=== PATIENT | female | born 2000 | race Caucasian/White ===

== ENCOUNTER 2021-02-21 22:24 | Emergency (ER) | payer OTHER ==
[~2021-02-21] VITALS: Ht 154.9 cm; Wt 67.6 kg
[2021-02-21 22:48] VITALS: BP_SYST 132
--- NOTE | 2021-02-22 01:12 | NUR ---
Patient ambulatory to bed 7 for evaluation
--- NOTE | 2021-02-22 01:32 | NUR ---
Patient brought in complaining of rash to vaginal area starting today and worsening. Denies any pain or itchiness. Denies any vaginal discharge. No other complaints/injuries per patient or as noted.
--- NOTE | 2021-02-22 01:42 | NUR ---
ER Dr. Mark at bedside examining patient.
--- NOTE | 2021-02-22 02:04 | NUR ---
Pelvic exam performed by Dr. Mark with this RN at bedside for entire examination. Patient tolerated procedure well. Patient assisted to position of comfort after examination.
[2021-02-22] MEDS ORDERED: CLIN300C12 PO (02:09)
[2021-02-22] MEDS ORDERED: CLINDAMYCIN HCL 150 MG CAPSULE PO ONE (02:15)
[2021-02-22 02:21] VITALS: BP_SYST 126
--- NOTE | 2021-02-22 02:21 | NUR ---
Patient given written and verbal discharge instructions and verbalizes understanding. ER MD discussed with patient the results and treatment provided. Patient in stable condition. ID arm band removed. Rx of clindamycin given. Patient educated on pain management and to follow up with PMD. Pain Scale 0/10 Opportunity for questions provided and answered. Medication side effect fact sheet provided.
== END 2021-02-22 02:21 | disposition home or self-care (01) ==
LOC: SED 22:24
DX: R21 Rash and other nonspecific skin eruption (principal); N89.8 Other specified noninflammatory disorders of vagina
CPT/HCPCS: 81025; 99283

== ENCOUNTER 2023-01-24 06:43 | Emergency (ER) | payer OTHER ==
[~2023-01-24] VITALS: Ht 154.9 cm; Wt 56.7 kg
[~2023-01-24 06:43] MED LIST: CLIN-142 PO
[2023-01-24 06:49] VITALS: BP_SYST 116; PULSE 82; RESP 16; TEMP 97.9; O2SAT 100
[2023-01-24] MEDS ORDERED: ACETAMINOPHEN 325 MG TABLET PO ONE (07:15)
[2023-01-24 09:48] VITALS: BP_SYST 96; PULSE 77; RESP 18; TEMP 98.7; O2SAT 99
== END 2023-01-24 11:39 | disposition home or self-care (01) ==
LOC: SED 06:43
DX: S13.4XXA Sprain of ligaments of cervical spine, initial encounter (principal); R51.9 Headache, unspecified; R11.0 Nausea; G47.00 Insomnia, unspecified; Z88.2 Allergy status to sulfonamides; Z79.899 Other long term (current) drug therapy; V49.40XA Driver injured in collision with unspecified motor vehicles in traffic accident, initial encounter; Y93.89 Activity, other specified; Y92.89 Other specified places as the place of occurrence of the external cause; Y99.8 Other external cause status
CPT/HCPCS: 70450-TC; 72125-TC; 76376; 81025; 99284

== ENCOUNTER 2023-09-04 19:13 | Emergency (ER) | payer BC, OTHER ==
[~2023-09-04] VITALS: Ht 154.9 cm; Wt 61.2 kg
[2023-09-04 19:39] VITALS: BP_SYST 115; PULSE 85; RESP 16; TEMP 99.2; O2SAT 99
[2023-09-04] MEDS ORDERED: ACET-2634 PO (21:50)
[2023-09-04 22:05] VITALS: BP_SYST 115; PULSE 85; RESP 16; TEMP 99.2; O2SAT 99
== END 2023-09-04 22:05 | disposition home or self-care (01) ==
LOC: SED 19:13
DX: M54.2 Cervicalgia (principal); M54.50 Low back pain, unspecified; R51.9 Headache, unspecified; Z88.2 Allergy status to sulfonamides; Z90.49 Acquired absence of other specified parts of digestive tract
CPT/HCPCS: 70450-TC; 72100; 72125-TC; 81025; 99284